=== PATIENT | female | born 1990 | race American Indian/Alaskan Native ===

== ENCOUNTER 2017-08-11 21:53 | Emergency (ER) | payer SELFPAY ==
[2017-08-11 23:14] VITALS: BP 97/63
--- NOTE | 2017-08-12 04:19 | Emergency Department Report ---
ED Female HPI - General Chief complaint: Urogenital-Female Stated complaint: VAG D/C WITH ODOR Time Seen by Provider: 08/12/17 03:14 Source: patient Mode of arrival: Ambulatory Limitations: No Limitations - History of Present Illness Initial comments: This is a 27-year-old -Irish female who presents with vaginal discharge started to weeks ago. Patient has a history of chronic bacteria vaginosis. Reports she is currently uninsured and has not been able to follow up with her primary care provider or [facility]. She decided to come in here to get some assistance because she could not take symptoms any longer. She has noticed a foul discharge or symptoms originally started. She has not tried anything [id number] for symptom relief. Denies frequency, urgency, vaginal bleeding, and risk of . MD Complaint: vaginal discharge -: week(s) (2 weeks) Severity: moderate Severity scale (0 -10): 5 Quality: aching Consistency: intermittent Improves with: none Worsens with: urination Are you Now?: No Associated Symptoms: vaginal discharge - Related Data Sexually active: No Previous Rx's Medication Instructions Recorded Last Taken Type Oxycodone HCl/Acetaminophen 1 each PO Q6HR PRN #20 tablet 11/29/13 Unknown Rx [Percocet 10-325 mg] traMADol [Ultram] 50 mg PO Q6HR PRN #14 tablet 09/26/14 Unknown Rx Ciprofloxacin HCl [Ciprofloxacin 500 mg PO Q12HR #14 tab 09/28/15 Unknown Rx TAB] HYDROcodone/APAP 5-325 [Loris 1 each PO Q6HR PRN #20 tablet 09/28/15 Unknown Rx 5/325] Ibuprofen [Motrin 600 MG tab] 600 mg PO Q8H PRN #30 tablet 09/28/15 Unknown Rx Promethazine [Phenergan TAB] 25 mg PO Q6HR PRN #20 tab 09/28/15 Unknown Rx traMADol [Ultram] 50 mg PO Q6HR PRN #10 tablet 12/05/15 Unknown Rx metroNIDAZOLE [Metronidazole] 500 mg PO BID 7 Days #14 tablet 08/12/17 Unknown Rx Allergies Allergy/AdvReac Type Severity Reaction Status Date / Time acetaminophen [From Tylenol] Allergy Angioedema Verified 12/05/15 02:00 ED Review of Systems ROS: Stated complaint: VAG D/C WITH ODOR Other details as noted in HPI Constitutional: denies: chills, fever Respiratory: denies: cough, shortness of breath, wheezing Cardiovascular: denies: chest pain, palpitations Gastrointestinal: denies: abdominal pain, nausea, diarrhea Genitourinary: discharge (clear discharge, foul odor). denies: urgency, dysuria Musculoskeletal: denies: back pain, joint swelling, arthralgia Neurological: denies: headache, weakness, paresthesias Psychiatric: denies: anxiety, depression ED Past Medical Hx - Past Medical History Hx Congestive Heart Failure: No Hx Diabetes: No Hx Asthma: No Hx COPD: No Hx HIV: No Additional medical history: Tetanus status up to date. pt relates hx of yeast infections and BV - Surgical History Past Surgical History?: No Additional Surgical History: LEEP surgery 2003 - Social History Smoking Status: Never Smoker Substance Use Type: None - Medications Home Medications: Home Medications Medication Instructions Recorded Confirmed Last Taken Type Oxycodone HCl/Acetaminophen 1 each PO Q6HR PRN #20 tablet 11/29/13 Unknown Rx [Percocet 10-325 mg] traMADol [Ultram] 50 mg PO Q6HR PRN #14 tablet 09/26/14 Unknown Rx Ciprofloxacin HCl [Ciprofloxacin 500 mg PO Q12HR #14 tab 09/28/15 Unknown Rx TAB] HYDROcodone/APAP 5-325 [Loris 1 each PO Q6HR PRN #20 tablet 09/28/15 Unknown Rx 5/325] Ibuprofen [Motrin 600 MG tab] 600 mg PO Q8H PRN #30 tablet 09/28/15 Unknown Rx Promethazine [Phenergan TAB] 25 mg PO Q6HR PRN #20 tab 09/28/15 Unknown Rx traMADol [Ultram] 50 mg PO Q6HR PRN #10 tablet 12/05/15 Unknown Rx metroNIDAZOLE [Metronidazole] 500 mg PO BID 7 Days #14 tablet 08/12/17 Unknown Rx ED Physical Exam - General Limitations: No Limitations General appearance: alert, in no apparent distress - Respiratory Respiratory exam: Present: normal lung sounds bilaterally. Absent: respiratory distress, wheezes, rales, rhonchi, stridor, accessory muscle use - Cardiovascular Cardiovascular Exam: Present: regular rate, normal rhythm, normal heart sounds. Absent: systolic murmur, diastolic murmur, rubs, gallop - GI/Abdominal GI/Abdominal exam: Present: soft, normal bowel sounds. Absent: distended, tenderness, guarding, rebound, rigid, organomegaly, mass - Neurological Exam Neurological exam: Present: alert, oriented X3 - Psychiatric Psychiatric exam: Present: normal affect, normal mood - Skin Skin exam: Present: warm, dry, intact, normal color. Absent: rash ED Course Vital Signs 08/11/17 23:11 Temperature 98.8 F Pulse Rate 79 Respiratory 18 Rate Blood Pressure 97/63 O2 Sat by Pulse 100 Oximetry ED Medical Decision Making - Medical Decision Making This is a 27 y.o. female presents with vaginal discharge for 2 weeks. Patient was examined by me. History of chronic vaginitis. Refused pelvic exam. Empirically treated with metronidazole 500 mg po bid x 7 days. Discussed prevention options. F/U with PCP or Health Department. Critical care attestation.: If time is entered above; I have spent that time in minutes in the direct care of this critically ill patient, excluding procedure time. ED Disposition Clinical Impression: Acute vaginitis Disposition: TO HOME OR SELFCARE Is pt being admited?: No Does the pt Need Aspirin: No Condition: Stable Instructions: Vaginitis (ED), Bacterial Vaginosis (ED) Additional Instructions: Avoid drinking alcohol for 24 hours. Continue safe sexual intercourse. Follow up with Primary Care Provider or health department in 3 days. Prescriptions: metroNIDAZOLE [Metronidazole] 500 mg PO BID 7 Days #14 tablet Referrals: [facility] [Outside] - 3-5 Days [facility] [Outside] - 3-5 Days [facility] [Outside] - 3-5 Days Forms: Work/School Release Form(ED) Time of Disposition: 04:21 Print Language: MALDIVIAN
== END 2017-08-12 04:25 | disposition home or self-care (01) ==
LOC: ED 21:53
DX: N76.0 Acute vaginitis (principal); Z88.6 Allergy status to analgesic agent
CPT/HCPCS: 99282

== ENCOUNTER 2017-09-01 14:12 | Emergency (ER) | payer SELFPAY ==
--- NOTE | 2017-09-01 18:43 | Emergency Department Report ---
ED Female HPI - General Chief complaint: Abdominal Pain Stated complaint: ABD PAIN Time Seen by Provider: 09/01/17 18:38 Source: patient Mode of arrival: Ambulatory Limitations: No Limitations - History of Present Illness Initial comments: 27-year-old female past medical history recurrent bacterial vaginosis presents with 3 days of vaginal discomfort and itching. Patient states this is similar to her previous episodes of bacterial vaginosis. Patient is awake alert and oriented 3. Denies nausea vomiting dysuria or hematuria or increased urinary frequency. Does endorse slight suprapubic discomfort. States she has been treated several times for bacterial vaginosis and yeast infections. Patient states she just finished a course of oral fluconazole and oral metronidazole within the last 1-2 weeks. MD Complaint: vaginal discharge, pelvic pain Onset/Timin -: days(s) Severity: mild Severity scale (0 -10): 4 Consistency: constant Worsens with: urination Associated Symptoms: vaginal discharge - Related Data Sexually active: Yes Previous Rx's Medication Instructions Recorded Last Taken Type Oxycodone HCl/Acetaminophen 1 each PO Q6HR PRN #20 tablet 11/29/13 Unknown Rx [Percocet 10-325 mg] traMADol [Ultram] 50 mg PO Q6HR PRN #14 tablet 09/26/14 Unknown Rx Ciprofloxacin HCl [Ciprofloxacin 500 mg PO Q12HR #14 tab 09/28/15 Unknown Rx TAB] HYDROcodone/APAP 5-325 [Galva 1 each PO Q6HR PRN #20 tablet 09/28/15 Unknown Rx 5/325] Ibuprofen [Motrin 600 MG tab] 600 mg PO Q8H PRN #30 tablet 09/28/15 Unknown Rx Promethazine [Phenergan TAB] 25 mg PO Q6HR PRN #20 tab 09/28/15 Unknown Rx traMADol [Ultram] 50 mg PO Q6HR PRN #10 tablet 12/05/15 Unknown Rx metroNIDAZOLE [Metronidazole] 500 mg PO BID 7 Days #14 tablet 08/12/17 Unknown Rx Sulfamethoxazole/Trimethoprim 1 each PO BID #6 tablet 09/01/17 Unknown Rx [Bactrim DS TAB] metroNIDAZOLE 0.75%(NF) [Metrogel 1 applicatio TP BID #1 tube 09/01/17 Unknown Rx 0.75% TOPICAL] Allergies Allergy/AdvReac Type Severity Reaction Status Date / Time acetaminophen [From Tylenol] Allergy Angioedema Verified 12/05/15 02:00 ED Review of Systems ROS: Stated complaint: ABD PAIN Other details as noted in HPI Constitutional: denies: chills, fever Eyes: denies: eye pain, eye discharge, vision change ENT: denies: ear pain, throat pain Respiratory: denies: cough, shortness of breath, wheezing Cardiovascular: denies: chest pain, palpitations Endocrine: no symptoms reported Gastrointestinal: denies: abdominal pain, nausea, diarrhea Genitourinary: denies: urgency, dysuria, discharge Musculoskeletal: denies: back pain, joint swelling, arthralgia Skin: denies: rash, lesions Neurological: denies: headache, weakness, paresthesias Psychiatric: denies: anxiety, depression Hematological/Lymphatic: denies: easy bleeding, easy bruising ED Past Medical Hx - Past Medical History Hx Congestive Heart Failure: No Hx Diabetes: No Hx Asthma: No Hx COPD: No Hx HIV: No Additional medical history: Tetanus status up to date. pt relates hx of yeast infections and BV - Surgical History Past Surgical History?: No Additional Surgical History: LEEP surgery 2003 - Social History Smoking Status: Never Smoker Substance Use Type: None - Medications Home Medications: Home Medications Medication Instructions Recorded Confirmed Last Taken Type Oxycodone HCl/Acetaminophen 1 each PO Q6HR PRN #20 tablet 11/29/13 Unknown Rx [Percocet 10-325 mg] traMADol [Ultram] 50 mg PO Q6HR PRN #14 tablet 09/26/14 Unknown Rx Ciprofloxacin HCl [Ciprofloxacin 500 mg PO Q12HR #14 tab 09/28/15 Unknown Rx TAB] HYDROcodone/APAP 5-325 [Galva 1 each PO Q6HR PRN #20 tablet 09/28/15 Unknown Rx 5/325] Ibuprofen [Motrin 600 MG tab] 600 mg PO Q8H PRN #30 tablet 09/28/15 Unknown Rx Promethazine [Phenergan TAB] 25 mg PO Q6HR PRN #20 tab 09/28/15 Unknown Rx traMADol [Ultram] 50 mg PO Q6HR PRN #10 tablet 12/05/15 Unknown Rx metroNIDAZOLE [Metronidazole] 500 mg PO BID 7 Days #14 tablet 08/12/17 Unknown Rx Sulfamethoxazole/Trimethoprim 1 each PO BID #6 tablet 09/01/17 Unknown Rx [Bactrim DS TAB] metroNIDAZOLE 0.75%(NF) [Metrogel 1 applicatio TP BID #1 tube 09/01/17 Unknown Rx 0.75% TOPICAL] ED Physical Exam - General Limitations: No Limitations General appearance: alert, in no apparent distress - Head Head exam: Present: atraumatic, normocephalic - Eye Eye exam: Present: normal appearance, PERRL, EOMI - ENT ENT exam: Present: mucous membranes moist - Neck Neck exam: Present: normal inspection - Respiratory Respiratory exam: Present: normal lung sounds bilaterally. Absent: respiratory distress - Cardiovascular Cardiovascular Exam: Present: regular rate, normal rhythm. Absent: systolic murmur, diastolic murmur, rubs, gallop - GI/Abdominal GI/Abdominal exam: Present: soft (abdomen soft nontender nondistended otherwise. Slight minimally reproducible suprapubic discomfort), normal bowel sounds - External exam: Present: normal external exam Speculum exam: Present: vaginal discharge (thick white vaginal discharge) Bi-manual exam: Present: normal bi-manual exam (no adnexal or cervical motion tenderness on bimanual exam) - Extremities Exam Extremities exam: Present: normal inspection - Back Exam Back exam: Present: normal inspection - Neurological Exam Neurological exam: Present: alert, oriented X3, CN II-XII intact, normal gait - Psychiatric Psychiatric exam: Present: normal affect, normal mood - Skin Skin exam: Present: warm, dry, intact, normal color. Absent: rash ED Course Vital Signs 09/01/17 17:49 Temperature 97 F L Pulse Rate 93 H Respiratory 18 Rate Blood Pressure 124/72 O2 Sat by Pulse 100 Oximetry ED Medical Decision Making - Medical Decision Making A/P: Vaginal discharge 1-urine culture, Chlamydia culture, wet prep sent 2-patient has had recurrent bouts of bacterial vaginosis for more than one year. I referred to [facility] on management of recurrent bacterial vaginosis. As patient recently completed a course of oral metronidazole will prescribe her a course of vaginal metronidazole gel and I advised her that it is necessary for her to follow up with [facility] to track her response to treatment. [email or web address]# [id number] 3-patient does have large leukocyte esterase and urine. Urine culture sent. We 'll treat empirically with short course of Bactrim Critical care attestation.: If time is entered above; I have spent that time in minutes in the direct care of this critically ill patient, excluding procedure time. ED Disposition Clinical Impression: Bacterial vaginosis Urinary tract infection Qualifiers: Urinary tract infection type: acute cystitis Hematuria presence: without hematuria Qualified Code(s): N30.00 - Acute cystitis without hematuria Disposition: TO HOME OR SELFCARE Is pt being admited?: No Does the pt Need Aspirin: No Condition: Stable Instructions: Abdominal Pain (ED), Bacterial Vaginosis (ED), Urinary Tract Infection in Women (ED) Prescriptions: metroNIDAZOLE 0.75%(NF) [Metrogel 0.75% TOPICAL] 1 applicatio TP BID #1 tube Sulfamethoxazole/Trimethoprim [Bactrim DS TAB] 1 each PO BID #6 tablet Referrals: [facility] [Provider Group] - 3-5 Days [facility] [Provider Group] - 3-5 Days [facility] [Provider Group] - 3-5 Days Forms: Work/School Release Form(ED) Time of Disposition: 19:55
[2017-09-01 18:49] LABS: Mucus,Urine 2+ /HPF
[2017-09-01 18:52] LABS: HCG Qualitative,Urine Negative (Negative)
[2017-09-01 19:03] LABS: Amorphous Crystals,Urine Few; Bilirubin,Urine NEG (Negative); Blood,Urine NEG (Negative); Color,Urine Yellow (Yellow); Protein,Urine <15 mg/dL mg/dL (Negative)
[2017-09-01 20:05] VITALS: BP 104/76
== END 2017-09-01 20:07 | disposition home or self-care (01) ==
LOC: ED 14:12
DX: N76.0 Acute vaginitis (principal); N39.0 Urinary tract infection, site not specified; Z88.6 Allergy status to analgesic agent
CPT/HCPCS: 81001; 81025; 87210; 87591; 99284

== ENCOUNTER 2017-12-15 09:44 | Emergency (ER) | payer SELFPAY ==
[2017-12-15 09:54] VITALS: BP 99/62
--- NOTE | 2017-12-15 11:05 | Emergency Department Report ---
Chief Complaint: Urogenital-Female Stated Complaint: STD CHECK Time Seen by Provider: 12/15/17 10:57 - HPI History of Present Illness: Patient is a 27-year-old female who is complaining of some vaginal irritation. Her partner was diagnosed with Trichomonas. Patient denies any dysuria or vaginal discharge this time. Patient states she went to the health department and tried to $60 to be seen so she came to the emergency department - ROS Review of Systems: All other systems are reviewed and are negative - Exam Vital Signs: Vital Signs 12/15/17 09:52 Temperature 98.1 F Pulse Rate 87 Respiratory 20 Rate Blood Pressure 99/62 O2 Sat by Pulse 100 Oximetry Physical Exam: Abdomen soft nontender. Patient alert and oriented 3. MSE screening note: Focused history and physical exam performed. Due to findings the following was ordered: ED Medical Decision Making - Medical Decision Making Patient has abdominal medical emergency at this time. He was advised to patient go to the health Department since this is much cheaper option. ED Disposition for MSE Clinical Impression: STD (female) Disposition: MED SCREENING EXAM-LEFT Is pt being admited?: No Does the pt Need Aspirin: No Condition: Stable Referrals: [facility], [Primary Care Provider] - 3-5 Days Time of Disposition: 11:19
== END 2017-12-15 11:07 | disposition left against medical advice (07) ==
LOC: ED 09:44
DX: A64 Unspecified sexually transmitted disease (principal)
CPT/HCPCS: 99281

== ENCOUNTER 2019-03-03 12:06 | Outpatient (CLI) | payer MEDICAID ==
[2019-03-03 13:08] LABS: Bilirubin,Urine NEG (Negative); Blood,Urine NEG (Negative); Color,Urine Yellow (Yellow); Mucus,Urine FEW /HPF; Protein,Urine <15 mg/dL mg/dL (Negative); Urobilinogen,Urine < 2.0 mg/dL (<2.0)
== END 2019-03-03 14:10 | disposition home or self-care (01) ==
LOC: TRG 12:06
PROVIDERS: ATTEND Obstetrics & Gynecology
DX: O47.03 False labor before 37 completed weeks of gestation, third trimester (principal); Z3A.30 30 weeks gestation of pregnancy
CPT/HCPCS: 59025; 81001; 87086

== ENCOUNTER 2019-04-29 19:55 | Outpatient (CLI) | payer MEDICAID ==
[2019-04-29 21:06] VITALS: BP 99/54
== END 2019-04-29 21:41 | disposition home or self-care (01) ==
LOC: TRG 19:55
PROVIDERS: ATTEND Obstetrics & Gynecology
DX: O47.1 False labor at or after 37 completed weeks of gestation (principal); Z3A.38 38 weeks gestation of pregnancy
CPT/HCPCS: 59025

== ENCOUNTER 2019-05-02 19:18 | Outpatient (CLI) | payer MEDICAID ==
[2019-05-02 19:44] VITALS: BP 90/59
== END 2019-05-02 22:06 | disposition home or self-care (01) ==
LOC: TRG 19:18
PROVIDERS: ATTEND Obstetrics & Gynecology
DX: O47.1 False labor at or after 37 completed weeks of gestation (principal); Z3A.38 38 weeks gestation of pregnancy
CPT/HCPCS: 59025

== ENCOUNTER 2019-05-05 12:25 | Inpatient (IN) | payer MEDICAID ==
[2019-05-05] MEDS ORDERED: MINERAL OIL 30 ML ORAL LIQD PO PRN (15:15)
[2019-05-05] MEDS ORDERED: TERBUTALINE 1 MG/1 ML INJ IVP PRN (15:15)
[2019-05-05] MEDS ORDERED: TERBUTALINE 1 MG/1 ML INJ SUB-Q PRN (15:15)
[2019-05-05] MEDS ORDERED: ePHEDrine SULFATE 50 MG/1 ML INJ IV PRN (15:15)
[2019-05-05] MEDS ORDERED: BUTORPHANOL 2 MG/1 ML INJ IV PRN (15:15)
[2019-05-05] MEDS ORDERED: LIDOCAINE (2%) 20 MG/1 ML VIAL 20 ML MDV INFILTRATI ONE (15:15)
[2019-05-05] MEDS ORDERED: ONDANSETRON 4 MG/2 ML INJ IV PRN (15:15)
[2019-05-05 15:45] LABS: Hematocrit 33.9 % (30.3-42.9); Hemoglobin 11.4 gm/dl (10.1-14.3); Mean Corpuscular HGB Conc 34 % (30-34); Mean Corpuscular Volume 87 fl (79-97); Red Blood Count 3.88 M/mm3 (3.65-5.03); Red Cell Distribution Width 14.3 % (13.2-15.2)
[2019-05-05 15:57] LABS: Platelet Count 86 K/mm3 (140-440)
[2019-05-05] MEDS ORDERED: AMPICILLIN/NS 2 GM/100 ML 2 GM/100 ML BAG IV ONE ×2 (15:57→19:30)
[2019-05-05] MEDS ORDERED: LACTATED RINGERS 1,000 ML IV SCH (16:00)
[2019-05-05] MEDS: fentaNYL 100 MCG/2 ML INJ IV PRN ×2 (16:13→17:56)
[2019-05-05] MEDS ORDERED: OXYTOCIN DRIP 30 UNITS/500 ML BAG IV SCH (18:00)
--- NOTE | 2019-05-05 18:23 | History and Physical Report ---
History of Present Illness Date of examination: 05/05/19 Date of admission: 05/05/19 15:47 Chief complaint: Labor History of present illness: 29 year old was admitted earlier in day for labor. Patient contractions had started earlier this afternoon. Denies VB. Reports active movement. Received care at [facility] and states she was seen in the o ffice today and was sent to the hospital. Was able to look up patient's records on the computer. EDC 05/13/2019. significant for the following: size greater than dates, gestational thrombocytopenia. labs are as follows: O+, antibody screen negative, HIV negative, hepatitis B surface antigen negative, RPR nonreactive, rubella immune, hemoglobin electrophoresis negative, quad screen negative, 1 hour sugar test 107, gonorrhea negative, chlamydia negative, GBS positive. 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 denies: chlamydia, gonorrhea, hepatitis B, HIV, syphilis Family/Genetic History: none Social history: no significant social history, full code. denies: smoking, alcohol abuse, IV drug use - Obstetrical History Expected Date of Delivery: 05/13/19 Actual Gestation: 38 Week(s) 6 Day(s) : 8 Para: 5 Hx # Term Pregnancies: 4 Number of Pregnancies: 1 Spontaneous Abortions: 1 Induced : 1 Number of Living Children: 4 Medications and Allergies Allergies Allergy/AdvReac Type Severity Reaction Status Date / Time No Known Allergies Allergy Verified 04/18/19 11:56 Home Medications Medication Instructions Recorded Confirmed Last Taken Type Pnv Plus Multivit Tab 1 tab PO DAILY 05/02/19 05/05/19 05/05/19 09:30 History 1 Active Meds: Active Medications Butorphanol Tartrate (Stadol) 2 mg IV Q2H PRN PRN Reason: Pain , Severe (7-10) Ephedrine Sulfate (Ephedrine Sulfate) 10 mg IV Q2M PRN PRN Reason: Hypotension Fentanyl (Sublimaze) 100 mcg IV Q2H PRN PRN Reason: Labor Pain Last Admin: 05/05/19 17:56 Dose: 100 mcg Documented by: Oxytocin/Sodium Chloride (Pitocin/Ns 20 Unit/1000ml Drip) 20 units in 1,000 mls @ 125 mls/hr IV DIRECT ANNE-MARIE Oxytocin/Sodium Chloride (Pitocin/Ns 30 Unit/500ml) 30 units in 500 mls @ 0 mls/hr IV TITR ANNE-MARIE; Protocol Lactated Ringer's (Lactated Ringers) 1,000 mls @ 125 mls/hr IV DIRECT ANNE-MARIE Last Admin: 05/05/19 15:55 Dose: 125 mls/hr Documented by: Ampicillin Sodium (Ampicillin/Ns 2 Gm/100 Ml) 2 gm in 100 mls @ 100 mls/hr IV ONCE ONE; Protocol Stop: 05/05/19 20:29 Ampicillin Sodium (Ampicillin/Ns 1 Gm/50 Ml) 1 gm in 50 mls @ 100 mls/hr IV Q4HR ANNE-MARIE; Protocol Mineral Oil (Mineral Oil) 30 ml PO QHS PRN PRN Reason: Constipation Ondansetron HCl (Zofran) 4 mg IV Q8H PRN PRN Reason: Nausea And Vomiting Terbutaline Sulfate (Brethine) 0.25 mg SUB-Q ONCE PRN PRN Reason: Hyperstimulation/Hypertonicity Terbutaline Sulfate (Brethine) 0.25 mg IVP ONCE PRN PRN Reason: Hyperstimulation/Hypertonicity Review of Systems All systems: negative (contractions) - Vital Signs Vital signs: Vital Signs Pulse BP 79 95/54 05/05/19 13:16 05/05/19 13:16 Temp Pulse Resp BP Pulse Ox 98.9 F 86 16 105/63 05/05/19 16:00 05/05/19 17:30 05/05/19 15:27 05/05/19 17:30 - Physical Exam Abdomen: Positive: normal appearance, soft. Negative: distention, tenderness, guarding, rigidity Genitourinary (Female): Positive: normal external genitalia, normal perenium. Negative: perineal/vulvar lesions (no lesions noted on careful exam with bright light) Vagina: Positive: normal moisture Uterus: Positive: enlarged (S=D) Anus/Rectum: Positive: normal perianal skin Extremities: Positive: normal. Negative: tenderness, edema - Obstetrical FHR: category 1 Cervical Dilatation: 8 Cervical Effacement Percentage: 90 station: 0 Uterine Contraction Pattern: Irregular Uterine Contraction Intensity: Mild Results Result Diagrams: 05/05/19 15:15 Abnormal lab results 05/05/19 Range/Units 15:15 Plt Count 86 L (140-440) K/mm3 All other labs normal. Assessment and Plan A: at 38 weeks, 6 days gestation. Active advanced labor. GBS positive. P: Admit. GBS prophylaxis. Anticipate .
[2019-05-05] MEDS: OXYTOCIN 20 UNIT/1000ML DRIP 20 UNITS/1,000 ML BAG IV SCH ×2 (18:58→20:16)
[2019-05-05] MEDS ORDERED: AMPICILLIN/NS 1 GM/50 ML 1 GM/50 ML BAG IV SCH (19:30)
--- NOTE | 2019-05-05 19:35 | Procedure Note ---
OB Delivery Note - Delivery Date of Delivery: 05/05/19 Surgeon: FIONA HUANG Estimated blood loss: 200cc - Vaginal Delivery presentation: vertex Delivery position: OA Delivery induction: none Delivery monitor: external FHT, external uterine Route of delivery: Delivery placenta: spontaneous Delivery cord: 3 umbilical vessels Episiotomy: none Delivery laceration: none Anesthesia: none Delivery comments: Spontaneous vaginal delivery at 18:50 of liveborn female weighing 3372 grams over intact perineum with apgars of 7/8. Spontaneous cry and respirations. 3 vessel cord double clamped and cut. Baby taken to radiant warmer for further suctioning. Spontaneous delivery of intact placenta and membranes. EBL 200 cc. No lacerations noted. Pitocin to IV fluids after delivery of placenta. Fundus firm and midline. Vaginal sweep negative, sponge count correct.
[2019-05-05] MEDS ORDERED: MAGNESIUM HYDROXIDE (MOM) ORAL LIQD UDC PO PRN (19:45)
[2019-05-05] MEDS ORDERED: WITCH HAZEL/ GLYCERIN PAD TP PRN (19:45)
[2019-05-05] MEDS ORDERED: LANOLIN/ZINC/DIMETHICONE (LANSINOH) 7 GM TP PRN (19:45)
[2019-05-05] MEDS: HYDROcodone/ACETAMINOPHEN 5-325 MG TAB PO PRN (20:49)
[2019-05-06] MEDS: HYDROcodone/ACETAMINOPHEN 5-325 MG TAB PO PRN (02:26)
[2019-05-06] MEDS: IBUPROFEN 600 MG TAB PO SCH ×2 (06:32→12:49)
[2019-05-06 07:12] LABS: Hematocrit 29.5 % (30.3-42.9); Hemoglobin 10.1 gm/dl (10.1-14.3)
--- NOTE | 2019-05-06 10:17 | Progress Note ---
Assessment and Plan A: day 1 S/P . Anemia. P: Continue iron supplementation. Anticipate discharge home tomorrow if patient continues to do well. Subjective - Subjective Date of service: 05/06/19 Principal diagnosis: day 1 S/P Interval history: day 1 S/P . Doing well. No complaints. Reports small to moderate amount of lochia. Patient reports: appetite normal, voiding normally, pain well controlled, flatus, ambulating normally, no dizzy ambulation, no nauseated : doing well Objective - Vital Signs Latest vital signs: Vital Signs Temp Pulse Resp BP BP Pulse Ox 05/06/19 08:57 98.9 F 70 18 94/54 98 05/06/19 05:52 98.3 F 69 18 100/59 99 05/06/19 02:26 20 05/05/19 22:35 98.4 F 73 20 102/47 05/05/19 20:13 98.2 F 75 136/71 05/05/19 20:03 75 136/71 05/05/19 17:30 86 105/63 05/05/19 16:00 98.9 F 05/05/19 15:27 98.2 F 79 16 95/54 05/05/19 14:58 83 84/54 05/05/19 13:16 79 95/54 Intake and Output 05/05/19 05/06/19 05/06/19 23:59 07:59 15:59 Intake Total 162.5 120 Output Total 600 Balance 162.5 -480 Intake: IV 162.5 PITOCin/NS 20 UNIT/1000ML 162.5 DRIP 20 units In 1,000 ml @ 125 mls/hr IV DIRECT ANNE-MARIE Rx#:[id number] Intake, Free Water 120 Output: Urine 600 Void 600 Other: Total, Output Amount 200 Estimated Blood Loss 200 - Exam Abdomen: Present: normal appearance, soft. Absent: distention, tenderness, guarding, rigidity Uterus: Present: normal, firm, fundal height below umbilicus. Absent: bogginess, tenderness Extremities: Present: normal. Absent: tenderness, edema - Labs Labs: Abnormal lab results 05/05/19 05/06/19 Range/Units 15:15 06:57 Hct 29.5 L (30.3-42.9) % Plt Count 86 L (140-440) K/mm3
[2019-05-06] MEDS: FERROUS SULFATE 325 MG TAB PO SCH (10:22)
[2019-05-06] MEDS: DOCUSATE SODIUM 100 MG CAP PO SCH (10:23)
[2019-05-06] MEDS: oxyCODONE /ACETAMINOPHEN 5-325MG TAB PO PRN ×2 (10:24→17:58)
[2019-05-07] MEDS: DOCUSATE SODIUM 100 MG CAP PO SCH ×4 (00:41→22:02)
[2019-05-07] MEDS: FERROUS SULFATE 325 MG TAB PO SCH ×4 (00:41→22:02)
[2019-05-07] MEDS: oxyCODONE /ACETAMINOPHEN 5-325MG TAB PO PRN ×3 (02:31→22:01)
--- NOTE | 2019-05-07 12:10 | Progress Note ---
Assessment and Plan A: day 2 S/P . Anemia secondary to and blood loss. Gestational thrombocytopenia. P: Discharge patient home today. Discussed with patient discharge instructions and warning signs in detail. Advised patient to avoid intercourse, driving, lifting and housework. Advised patient to continue to take her vitamins and iron supplements at home. Advised patient to follow up at [facility] on 05/11/2019 for repeat platelet count. Patient voiced understanding of all instructions. Subjective - Subjective Date of service: 05/07/19 Principal diagnosis: day 2 S/P Interval history: day 2 S/P . Doing well. Patient desires discharge home today. Voiding without difficulty, ambulating well, tolerating a regular diet, passing gas. Patient denies headache, cough, shortness of breath, chest pain, dizziness, abdominal pain, leg pain, heavy bleeding, or nausea/vomiting. Patient reports: appetite normal, voiding normally, pain well controlled, flatus, ambulating normally, no dizzy ambulation, no nauseated : doing well Objective - Vital Signs Latest vital signs: Vital Signs Temp Pulse Resp BP BP Pulse Ox 05/07/19 08:25 98.2 F 75 20 102/63 05/07/19 03:31 18 05/07/19 02:31 18 05/07/19 00:20 98.2 F 66 18 94/52 100 05/06/19 18:58 18 05/06/19 16:51 97.9 F 72 18 98 Intake and Output 05/06/19 05/07/19 05/07/19 23:59 07:59 15:59 Intake Total 360 120 320 Balance 360 120 320 Intake: Oral 240 120 320 Intake, Free Water 120 Other: Total, Intake Amount 240 120 320 # Voids Void 1 1 - Exam Cardiovascular: Present: Regular rate, Normal S1, Normal S2, No murmurs Lungs: Present: Clear to auscultation Abdomen: Present: normal appearance, soft, normal bowel sounds. Absent: distention, tenderness, guarding, rigidity Uterus: Present: normal, firm, fundal height below umbilicus. Absent: bogginess, tenderness Extremities: Present: normal. Absent: tenderness, edema - Labs Labs: Abnormal lab results 05/07/19 Range/Units 10:15 Plt Count 81 L (140-440) K/mm3
[2019-05-08] MEDS: oxyCODONE /ACETAMINOPHEN 5-325MG TAB PO PRN (05:12)
[2019-05-08 09:30] LABS: Hematocrit 32.4 % (30.3-42.9); Hemoglobin 11.4 gm/dl (10.1-14.3); Mean Corpuscular HGB Conc 35 % (30-34); Mean Corpuscular Volume 88 fl (79-97); Red Blood Count 3.69 M/mm3 (3.65-5.03); Red Cell Distribution Width 14.4 % (13.2-15.2)
[2019-05-08 09:32] LABS: Platelet Count 89 K/mm3 (140-440)
[2019-05-08] MEDS: DOCUSATE SODIUM 100 MG CAP PO SCH (09:40)
[2019-05-08] MEDS: FERROUS SULFATE 325 MG TAB PO SCH (09:40)
--- NOTE | 2019-05-08 09:53 | Progress Note ---
Assessment and Plan - Patient Problems (1) Status post normal vaginal delivery Current Visit: Yes Status: Acute Plan to address problem: PPD 3 - stable Discharge to home today Follow-up at [facility] as needed or in 6 weeks for exam (2) Gestational thrombocytopenia without hemorrhage Current Visit: Yes Status: Acute Qualifiers: Trimester: third trimester Qualified Code(s): O99.113 - Other diseases of the blood and blood-forming organs and certain disorders involving the immune mechanism complicating , third trimester; D69.6 - Thrombocytopenia, unspecified Plan to address problem: Follow up with Hematology (3) Encounter for other general counseling and advice on contraception Current Visit: Yes Status: Acute Plan to address problem: Contraceptive counseling provided. Patient prefers depo provera Risks of hormonal contraception discussed. All questions answered. Patient voiced understanding. 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 Patient reports: appetite normal, voiding normally, pain well controlled, ambulating normally, no dizzy ambulation [place]: doing well, bottle feeding Objective - Vital Signs Latest vital signs: Vital Signs Temp Pulse Resp BP BP Pulse Ox 05/08/19 07:36 98.2 F 68 20 102/63 97 05/08/19 00:28 98.2 F 69 20 100/61 100 05/07/19 16:22 98 F 68 20 101/60 Intake and Output 05/07/19 05/08/19 05/08/19 23:59 07:59 15:59 Intake Total 120 Balance 120 Intake: Oral 120 Other: Total, Intake Amount 120 # Voids Void 1 1 - Exam Cardiovascular: Present: Regular rate Lungs: Present: Clear to auscultation Abdomen: Present: normal appearance, soft Vulva: both: normal Uterus: Present: normal, firm, fundal height below umbilicus Extremities: Present: normal Comments: scant lochia - Labs Labs: Abnormal lab results 05/07/19 05/08/19 Range/Units 10:15 08:48 MCHC 35 H (30-34) % Plt Count 81 L 89 L (140-440) K/mm3
--- NOTE | 2019-05-08 09:56 | Discharge Summary ---
Providers - Providers Date of Admission: 05/05/19 15:47 Date of discharge: 05/08/19 Attending physician: CASIE CRUM MD Primary care physician: CASIE CRUM MD Hospitalization Reason for admission: active labor, IUP at term Delivery: Episiotomy: none Laceration: none Other procedures: none complications: other (thrombocytopenia) Discharge diagnosis: IUP at term delivered [place] baby: female Hospital course: Complicated by thrombocytopenia Condition at discharge: Stable Disposition: ND-01 TO HOME OR SELFCARE - Discharge Diagnoses (1) Status post normal vaginal delivery Status: Acute (2) Gestational thrombocytopenia without hemorrhage Status: Acute Qualifiers: Trimester: third trimester Qualified Code(s): O99.113 - Other diseases of the blood and blood-forming organs and certain disorders involving the immune mechanism complicating , third trimester; D69.6 - Thrombocytopenia, unspecified Comment: Asymptomatic Follow-up with Hematology (3) Encounter for other general counseling and advice on contraception Status: Acute (4) Encounter for initial prescription of injectable contraceptive Status: Acute Comment: Administered prior to discharge Plan - Provider Discharge Summary Activity: routine, no sex for 6 weeks, no heavy lifting 4 weeks, no strenuous exercise Diet: routine Instructions: routine Additional instructions: [] Smoking cessation referral if applicable(refer to patient education folder for contact #) [] Refer to [facility] Call your doctor immediately for: * Fever > 100.5 * Heavy vaginal bleeding ( >1 pad per hour) * Severe persistent headache * Shortness of breath * Reddened, hot, painful area to leg or breast * Drainage or odor from incision. * Keep incision clean and dry at all times and follow doctor's instructions regarding bathing/showering - Follow up plan Follow up: CASIE CRUM MD [Primary Care Provider] - 6 Weeks (Follow-up at [facility] as needed or in 6 weeks for exam)
[2019-05-08] MEDS ORDERED: medroxyPROGESTERone ACETATE 150 MG/ML SYRINGE IM SCH (10:00)
[2019-05-08 11:05] VITALS: BP 110/59
== END 2019-05-08 11:40 | disposition home or self-care (01) | DRG 775 ==
LOC: TRG 12:25 → LD 15:47 → OB 22:40
PROVIDERS: ADMIT Obstetrics & Gynecology; ATTEND Obstetrics & Gynecology
PROC: 10E0XZZ Delivery of Products of Conception, External Approach (ICD-10-PCS; principal; 2019-05-05)
DX: O99.824 Streptococcus B carrier state complicating childbirth (principal); O99.12 Other diseases of the blood and blood-forming organs and certain disorders involving the immune mechanism complicating childbirth; D69.6 Thrombocytopenia, unspecified; O99.02 Anemia complicating childbirth; Z3A.38 38 weeks gestation of pregnancy; Z37.0 Single live birth; Z30.8 Encounter for other contraceptive management; Z30.42 Encounter for surveillance of injectable contraceptive
CPT/HCPCS: 36415; 85014; 85018; 85027; 85049; 86850; 86900; 86901; G0378; J0290; J1050; J2590; J3010; J7120

== ENCOUNTER 2020-07-02 12:31 | Emergency (ER) | payer MEDICAID | END 2020-07-02 13:31 | disposition left against medical advice (07) | LOC: ED 12:31 | DX: N93.9 Abnormal uterine and vaginal bleeding, unspecified (principal); Z53.21 Procedure and treatment not carried out due to patient leaving prior to being seen by health care provider ==

== ENCOUNTER 2020-07-02 22:57 | Emergency (ER) | payer MEDICAID | END 2020-07-03 07:32 | LOC: ED 22:57 | DX: Z53.21 Procedure and treatment not carried out due to patient leaving prior to being seen by health care provider (principal) ==

== ENCOUNTER 2020-12-25 21:37 | Outpatient (CLI) | payer MEDICAID ==
[2020-12-25 21:45] VITALS: BP 105/61
== END 2020-12-26 00:02 | disposition home or self-care (01) ==
LOC: TRG 21:37 → APU 21:38 → TRG 12-26 00:02
PROVIDERS: ATTEND Obstetrics & Gynecology
DX: Z34.93 Encounter for supervision of normal pregnancy, unspecified, third trimester (principal); Z3A.38 38 weeks gestation of pregnancy
CPT/HCPCS: 59025

== ENCOUNTER 2021-01-08 08:10 | Inpatient (IN) | payer MEDICAID ==
[2021-01-08] MEDS ORDERED: OXYTOCIN DRIP 30 UNITS/500 ML BAG IV SCH ×2 (10:00)
[2021-01-08] MEDS ORDERED: LACTATED RINGERS 1,000 ML IV SCH (10:00)
--- NOTE | 2021-01-08 10:11 | History and Physical Report ---
History of Present Illness Date of examination: 01/08/21 Date of admission: 01/08/2021 Chief complaint: Presents due to decreased movement and CTX History of present illness: Early entry to care, course complicated by UTI X 2, Vitamin D Deficiency, Poor maternal weight gain, and Thrombocytopenia (co-jayro with Hematology and received IV iron infusions) also co-jayro with [facility]. Hx of HSV II (taking Valtrex suppression). 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 History: abnormal PAP smear, herpes Family/Genetic History: hypertension (mother) Social history: no significant social history, - Obstetrical History Expected Date of Delivery: 01/04/21 Actual Gestation: 40 Week(s) 4 Day(s) : 9 Para: 5 Hx # Term Pregnancies: 5 Spontaneous Abortions: 2 Induced : 1 Number of Living Children: 5 #1 Gender: Male year: 2,[birth year] Birthweight: 2.665 kg Method of Delivery: Vaginal Gestational age at delivery: 38 #2 Gender: Female year: 2,011 Birthweight: 3.26 kg Method of Delivery: Vaginal Gestational age at delivery: 38 #3 Infant Gender: Female year: 2,012 Birthweight: 2.722 kg Method of Delivery: Vaginal Gestational age at delivery: 39 #4 Gender: Female year: 2,014 Birthweight: 2.722 kg Method of Delivery: Vaginal #5 Gender: Female year: 2,020 Birthweight: 3.345 kg Method of Delivery: Vaginal Gestational age at delivery: 39 Medications and Allergies Allergies Allergy/AdvReac Type Severity Reaction Status Date / Time No Known Allergies Allergy Verified 01/08/21 08:58 Home Medications Medication Instructions Recorded Confirmed Last Taken Type Pnv Plus Multivit Tab 1 tab PO DAILY 05/02/19 05/05/19 05/05/19 09:30 History 1 Active Meds: Active Medications Acetaminophen (Acetaminophen 325 Mg Tab) 650 mg PO Q4H PRN PRN Reason: Pain, Mild (1-3) Butorphanol Tartrate (Butorphanol 2 Mg/1 Ml Inj) 2 mg IV Q2H PRN PRN Reason: Pain , Severe (7-10) Carboprost Tromethamine (Carboprost Tromethamine 250 Mcg/1 Ml Inj) 250 mcg IM ONCE PRN PRN Reason: Uterine Bleeding Ephedrine Sulfate (Ephedrine Sulfate 50 Mg/1 Ml Inj) 10 mg IV Q2M PRN PRN Reason: Hypotension Oxytocin/Sodium Chloride (Pitocin/Ns 30 Unit/500ml) 30 units in 500 mls @ 4 mls/hr IV TITR ANNE-MARIE; Protocol Lactated Ringer's (Lactated Ringers) 1,000 mls @ 125 mls/hr IV DIRECT ANNE-MARIE Oxytocin/Sodium Chloride (Pitocin/Ns 30 Unit/500ml) 30 units in 500 mls @ 40 mls/hr IV TITR ANNE-MARIE; Protocol Lidocaine (Lidocaine (2%) 20 Mg/1 Ml Vial 20 Ml Mdv) 20 ml INFILTRATI ONCE ONE Stop: 01/08/21 09:51 Loperamide HCl (Loperamide 2 Mg Cap) 2 mg PO ONCE PRN PRN Reason: give with Hemabate Methylergonovine Maleate (Methylergonovine Maleate 0.2 Mg/Ml Vial) 0.2 mg IM ONCE PRN PRN Reason: Uterine Bleeding Mineral Oil (Mineral Oil 30 Ml Oral Liqd) 30 ml PO QHS PRN PRN Reason: Constipation Misoprostol (Misoprostol 200 Mcg Tab) 800 mcg OH ONCE PRN PRN Reason: Uterine Bleeding Naloxone HCl (Naloxone 0.4 Mg/1 Ml Inj) 0.1 mg IV Q2MIN PRN PRN Reason: Res Rate </= 8 or 02 SAT < 92% Ondansetron HCl (Ondansetron 4 Mg/2 Ml Inj) 4 mg IV Q8H PRN PRN Reason: Nausea And Vomiting Oxytocin (Oxytocin 10 Unit/1 Ml Inj) 10 unit IM ONCE PRN PRN Reason: Uterine Bleeding Terbutaline Sulfate (Terbutaline 1 Mg/1 Ml Inj) 0.25 mg SUB-Q ONCE PRN PRN Reason: Hyperstimulation/Hypertonicity Review of Systems All systems: negative - Vital Signs Vital signs: Vital Signs Pulse Pulse Ox 95 H 100 01/08/21 08:55 01/08/21 08:55 Temp Pulse Resp BP Pulse Ox 90 111/71 96 01/08/21 10:00 01/08/21 08:56 01/08/21 10:00 - Physical Exam Breasts: Positive: normal Cardiovascular: Regular rate Lungs: Positive: Clear to auscultation, Normal air movement Abdomen: Positive: normal appearance, soft, normal bowel sounds Genitourinary (Female): Positive: normal external genitalia, normal perenium Vagina: Positive: normal moisture Uterus: Positive: enlarged Anus/Rectum: Positive: normal perianal skin Extremities: Positive: normal - Obstetrical FHR: category 1 Uterine Contraction Monitor Mode: External Cervical Dilatation: 4 (vtx; Intact) Cervical Effacement Percentage: 70 station: -2 Uterine Contraction Pattern: Regular Uterine Tone Measurement Phase: Resting Results All other labs normal. Assessment and Plan A: IUP @ 40 4/7 Weeks Category I Tracing Early Labor Thrombocytopenia GBS Negative P: Admit to L&D per Routine Orders Pitocin Augmentation
[2021-01-08] MEDS ORDERED: BUTORPHANOL 2 MG/1 ML INJ IV PRN (11:00)
[2021-01-08] MEDS ORDERED: METHYLERGONOVINE MALEATE 0.2 MG/ML VIAL IM PRN (11:00)
[2021-01-08] MEDS ORDERED: miSOPROStol 200 MCG TAB PR PRN (11:00)
[2021-01-08] MEDS ORDERED: LOPERAMIDE 2 MG CAP PO PRN (11:00)
[2021-01-08] MEDS ORDERED: CARBOPROST TROMETHAMINE 250 MCG/1 ML INJ IM PRN (11:00)
[2021-01-08] MEDS ORDERED: NALOXONE 0.4 MG/1 ML INJ IV PRN (11:00)
[2021-01-08] MEDS ORDERED: MINERAL OIL 30 ML ORAL LIQD PO PRN (11:00)
[2021-01-08] MEDS ORDERED: ePHEDrine SULFATE 50 MG/1 ML INJ IV PRN (11:00)
[2021-01-08] MEDS ORDERED: ACETAMINOPHEN 325 MG TAB PO PRN ×2 (11:00→22:03)
[2021-01-08] MEDS ORDERED: LIDOCAINE (2%) 20 MG/1 ML VIAL 20 ML MDV INFILTRATI SCH (11:00)
[2021-01-08] MEDS ORDERED: TERBUTALINE 1 MG/1 ML INJ SUB-Q PRN (11:00)
[2021-01-08] MEDS ORDERED: ONDANSETRON 4 MG/2 ML INJ IV PRN ×2 (11:00→22:03)
[2021-01-08] MEDS ORDERED: OXYTOCIN 10 UNIT/1 ML INJ IM PRN (11:00)
[2021-01-08 12:34] LABS: Hematocrit 39.1 % (30.3-42.9); Hemoglobin 13.5 gm/dl (10.1-14.3); Mean Corpuscular HGB Conc 35 % (30-34); Mean Corpuscular Volume 91 fl (79-97); Red Blood Count 4.32 M/mm3 (3.65-5.03); Red Cell Distribution Width 16.6 % (13.2-15.2)
[2021-01-08 12:35] LABS: Platelet Count 58 K/mm3 (140-440)
[2021-01-08] MEDS ORDERED: SODIUM CHLORIDE 0.9% 500 ML 500 ML IV ONE (18:36)
--- NOTE | 2021-01-08 19:52 | Progress Note ---
Subjective - Subjective Date of service: 01/08/21 Interval history: Late entry: PM rounds AROM at 19:00 scant, clear cervix 5cm/8p%/-1 FHT Category 1 [place]: irregular Plan for oxytocin per protocol Deidra Cyr MD Objective - Vital Signs Vital Signs: Vital Signs - 12hr 01/08/21 01/08/21 01/08/21 08:55 08:56 09:00 Temperature Pulse Rate 95 H 107 H 89 Respiratory Rate Blood Pressure 111/71 O2 Sat by Pulse 100 100 Oximetry O2 Sat by Pulse Oximetry [ Bilateral] 01/08/21 01/08/21 01/08/21 09:05 09:10 09:15 Temperature Pulse Rate 90 98 H 104 H Respiratory Rate Blood Pressure O2 Sat by Pulse 99 100 100 Oximetry O2 Sat by Pulse Oximetry [ Bilateral] 01/08/21 01/08/21 01/08/21 09:20 09:25 09:30 Temperature Pulse Rate 98 H 100 H 91 H Respiratory Rate Blood Pressure O2 Sat by Pulse 99 100 99 Oximetry O2 Sat by Pulse Oximetry [ Bilateral] 01/08/21 01/08/21 01/08/21 09:35 09:40 09:45 Temperature Pulse Rate 92 H 107 H 96 H Respiratory Rate Blood Pressure O2 Sat by Pulse 99 99 100 Oximetry O2 Sat by Pulse Oximetry [ Bilateral] 01/08/21 01/08/21 01/08/21 09:50 09:55 10:00 Temperature Pulse Rate 100 H 99 H 90 Respiratory Rate Blood Pressure O2 Sat by Pulse 98 98 96 Oximetry O2 Sat by Pulse Oximetry [ Bilateral] 01/08/21 01/08/21 01/08/21 10:05 10:10 10:15 Temperature Pulse Rate 107 H 98 H 84 Respiratory Rate Blood Pressure O2 Sat by Pulse 97 97 98 Oximetry O2 Sat by Pulse Oximetry [ Bilateral] 01/08/21 01/08/21 01/08/21 10:20 10:25 10:30 Temperature Pulse Rate 96 H 94 H 86 Respiratory Rate Blood Pressure O2 Sat by Pulse 97 98 98 Oximetry O2 Sat by Pulse Oximetry [ Bilateral] 01/08/21 01/08/21 01/08/21 10:35 10:40 10:59 Temperature Pulse Rate 96 H 80 84 Respiratory Rate Blood Pressure O2 Sat by Pulse 99 98 99 Oximetry O2 Sat by Pulse Oximetry [ Bilateral] 01/08/21 01/08/21 01/08/21 11:00 11:04 11:07 Temperature Pulse Rate 83 82 93 H Respiratory Rate Blood Pressure 108/64 O2 Sat by Pulse 98 93 Oximetry O2 Sat by Pulse Oximetry [ Bilateral] 01/08/21 01/08/21 01/08/21 11:09 11:14 11:19 Temperature Pulse Rate 103 H 89 76 Respiratory Rate Blood Pressure O2 Sat by Pulse 97 99 97 Oximetry O2 Sat by Pulse Oximetry [ Bilateral] 01/08/21 01/08/21 01/08/21 11:24 11:29 11:34 Temperature Pulse Rate 95 H 85 84 Respiratory Rate Blood Pressure O2 Sat by Pulse 99 97 97 Oximetry O2 Sat by Pulse Oximetry [ Bilateral] 01/08/21 01/08/21 01/08/21 11:39 11:44 11:49 Temperature Pulse Rate 89 90 86 Respiratory Rate Blood Pressure O2 Sat by Pulse 98 97 97 Oximetry O2 Sat by Pulse Oximetry [ Bilateral] 01/08/21 01/08/21 01/08/21 11:54 11:57 11:59 Temperature Pulse Rate 98 H 89 94 H Respiratory Rate Blood Pressure O2 Sat by Pulse 97 92 97 Oximetry O2 Sat by Pulse Oximetry [ Bilateral] 01/08/21 01/08/21 01/08/21 12:04 12:07 12:09 Temperature Pulse Rate 83 96 H Respiratory Rate Blood Pressure O2 Sat by Pulse 97 96 Oximetry O2 Sat by Pulse 98 Oximetry [ Bilateral] 01/08/21 01/08/21 01/08/21 12:14 12:19 12:24 Temperature Pulse Rate 89 104 H 75 Respiratory Rate Blood Pressure O2 Sat by Pulse 98 97 97 Oximetry O2 Sat by Pulse Oximetry [ Bilateral] 01/08/21 01/08/21 01/08/21 12:29 12:34 12:39 Temperature Pulse Rate 76 89 84 Respiratory Rate Blood Pressure O2 Sat by Pulse 97 98 96 Oximetry O2 Sat by Pulse Oximetry [ Bilateral] 01/08/21 01/08/21 01/08/21 12:44 12:49 12:58 Temperature Pulse Rate 87 86 83 Respiratory Rate Blood Pressure O2 Sat by Pulse 98 98 99 Oximetry O2 Sat by Pulse Oximetry [ Bilateral] 01/08/21 01/08/21 01/08/21 13:03 13:08 13:13 Temperature Pulse Rate 87 92 H 87 Respiratory Rate Blood Pressure O2 Sat by Pulse 96 97 96 Oximetry O2 Sat by Pulse Oximetry [ Bilateral] 01/08/21 01/08/21 01/08/21 13:18 13:23 13:28 Temperature Pulse Rate 82 91 H 78 Respiratory Rate Blood Pressure O2 Sat by Pulse 96 96 97 Oximetry O2 Sat by Pulse Oximetry [ Bilateral] 01/08/21 01/08/21 01/08/21 13:33 13:37 13:38 Temperature Pulse Rate 87 91 H 92 H Respiratory Rate Blood Pressure O2 Sat by Pulse 98 94 99 Oximetry O2 Sat by Pulse Oximetry [ Bilateral] 01/08/21 01/08/21 01/08/21 13:43 13:48 13:53 Temperature Pulse Rate 82 98 H 96 H Respiratory Rate Blood Pressure O2 Sat by Pulse 98 99 97 Oximetry O2 Sat by Pulse Oximetry [ Bilateral] 01/08/21 01/08/21 01/08/21 13:58 14:03 14:08 Temperature Pulse Rate 87 93 H 83 Respiratory Rate Blood Pressure O2 Sat by Pulse 98 98 98 Oximetry O2 Sat by Pulse Oximetry [ Bilateral] 01/08/21 01/08/21 01/08/21 14:13 14:18 14:23 Temperature Pulse Rate 80 79 93 H Respiratory Rate Blood Pressure O2 Sat by Pulse 98 97 97 Oximetry O2 Sat by Pulse Oximetry [ Bilateral] 01/08/21 01/08/21 01/08/21 14:28 14:30 14:33 Temperature 98.1 F Pulse Rate 94 H 85 Respiratory 16 Rate Blood Pressure O2 Sat by Pulse 96 98 Oximetry O2 Sat by Pulse Oximetry [ Bilateral] 01/08/21 01/08/21 01/08/21 14:38 14:43 14:48 Temperature Pulse Rate 87 93 H 97 H Respiratory Rate Blood Pressure 102/61 O2 Sat by Pulse 98 97 96 Oximetry O2 Sat by Pulse Oximetry [ Bilateral] 01/08/21 01/08/21 01/08/21 14:53 14:58 15:03 Temperature Pulse Rate 82 97 H 95 H Respiratory Rate Blood Pressure O2 Sat by Pulse 97 97 97 Oximetry O2 Sat by Pulse Oximetry [ Bilateral] 01/08/21 01/08/21 01/08/21 15:08 15:13 15:18 Temperature Pulse Rate 90 85 87 Respiratory Rate Blood Pressure O2 Sat by Pulse 98 98 97 Oximetry O2 Sat by Pulse Oximetry [ Bilateral] 01/08/21 01/08/21 01/08/21 15:23 15:28 15:29 Temperature Pulse Rate 94 H 87 58 L Respiratory Rate Blood Pressure O2 Sat by Pulse 99 95 93 Oximetry O2 Sat by Pulse Oximetry [ Bilateral] 01/08/21 01/08/21 01/08/21 15:33 15:37 15:39 Temperature Pulse Rate 100 H 73 Respiratory Rate Blood Pressure O2 Sat by Pulse 100 79 L 84 Oximetry O2 Sat by Pulse Oximetry [ Bilateral] 01/08/21 01/08/21 01/08/21 15:44 15:49 15:50 Temperature Pulse Rate 76 100 H 108 H Respiratory Rate Blood Pressure O2 Sat by Pulse 81 L 88 90 Oximetry O2 Sat by Pulse Oximetry [ Bilateral] 01/08/21 01/08/21 01/08/21 15:54 15:59 16:04 Temperature Pulse Rate Respiratory Rate Blood Pressure O2 Sat by Pulse 83 L 92 80 L Oximetry O2 Sat by Pulse Oximetry [ Bilateral] 01/08/21 01/08/21 01/08/21 16:08 16:09 16:13 Temperature Pulse Rate 101 H 124 H Respiratory Rate Blood Pressure O2 Sat by Pulse 79 L 85 78 L Oximetry O2 Sat by Pulse Oximetry [ Bilateral] 01/08/21 01/08/21 01/08/21 16:14 16:18 16:23 Temperature Pulse Rate 92 H 94 H Respiratory Rate Blood Pressure O2 Sat by Pulse 85 99 99 Oximetry O2 Sat by Pulse Oximetry [ Bilateral] 01/08/21 01/08/21 01/08/21 16:28 16:33 16:38 Temperature Pulse Rate 90 91 H 86 Respiratory Rate Blood Pressure O2 Sat by Pulse 99 99 97 Oximetry O2 Sat by Pulse Oximetry [ Bilateral] 01/08/21 01/08/21 01/08/21 16:43 16:48 16:53 Temperature Pulse Rate 81 83 82 Respiratory Rate Blood Pressure O2 Sat by Pulse 97 98 98 Oximetry O2 Sat by Pulse Oximetry [ Bilateral] 01/08/21 01/08/21 01/08/21 16:58 17:03 17:05 Temperature Pulse Rate 87 102 H 91 H Respiratory Rate Blood Pressure O2 Sat by Pulse 97 97 89 Oximetry O2 Sat by Pulse Oximetry [ Bilateral] 10/09/2301/08/21 01/08/21 17:08 17:13 17:18 Temperature Pulse Rate 96 H 85 87 Respiratory Rate Blood Pressure O2 Sat by Pulse 97 99 97 Oximetry O2 Sat by Pulse Oximetry [ Bilateral] 01/08/21 01/08/21 01/08/21 17:23 17:28 17:33 Temperature Pulse Rate 83 93 H 92 H Respiratory Rate Blood Pressure O2 Sat by Pulse 98 98 99 Oximetry O2 Sat by Pulse Oximetry [ Bilateral] 01/08/21 01/08/21 01/08/21 17:38 17:43 17:45 Temperature 98 F Pulse Rate 89 88 101 H Respiratory Rate Blood Pressure O2 Sat by Pulse 99 98 Oximetry O2 Sat by Pulse Oximetry [ Bilateral] 01/08/21 01/08/21 01/08/21 17:48 17:53 17:58 Temperature Pulse Rate 80 83 75 Respiratory Rate Blood Pressure O2 Sat by Pulse 98 98 98 Oximetry O2 Sat by Pulse Oximetry [ Bilateral] 01/08/21 01/08/21 01/08/21 18:03 18:08 18:13 Temperature Pulse Rate 80 85 77 Respiratory Rate Blood Pressure O2 Sat by Pulse 97 98 97 Oximetry O2 Sat by Pulse Oximetry [ Bilateral] 01/08/21 01/08/21 01/08/21 18:14 18:18 18:23 Temperature Pulse Rate 78 84 79 Respiratory Rate Blood Pressure 103/62 O2 Sat by Pulse 97 97 Oximetry O2 Sat by Pulse Oximetry [ Bilateral] 01/08/21 01/08/21 01/08/21 18:28 18:33 18:38 Temperature Pulse Rate 80 72 95 H Respiratory Rate Blood Pressure O2 Sat by Pulse 97 96 99 Oximetry O2 Sat by Pulse Oximetry [ Bilateral] 01/08/21 01/08/21 01/08/21 18:43 18:45 18:48 Temperature Pulse Rate 105 H 73 80 Respiratory Rate Blood Pressure 111/71 O2 Sat by Pulse 97 98 Oximetry O2 Sat by Pulse Oximetry [ Bilateral] 01/08/21 01/08/21 01/08/21 18:53 18:58 19:03 Temperature Pulse Rate 75 81 73 Respiratory Rate Blood Pressure O2 Sat by Pulse 99 97 97 Oximetry O2 Sat by Pulse Oximetry [ Bilateral] 01/08/21 01/08/21 01/08/21 19:08 19:13 19:14 Temperature Pulse Rate 91 H 82 78 Respiratory Rate Blood Pressure 118/65 O2 Sat by Pulse 100 98 Oximetry O2 Sat by Pulse Oximetry [ Bilateral] 01/08/21 01/08/21 01/08/21 19:18 19:23 19:28 Temperature Pulse Rate 86 81 76 Respiratory Rate Blood Pressure O2 Sat by Pulse 100 98 97 Oximetry O2 Sat by Pulse Oximetry [ Bilateral] 01/08/21 01/08/21 01/08/21 19:33 19:38 19:43 Temperature Pulse Rate 94 H 78 79 Respiratory Rate Blood Pressure O2 Sat by Pulse 99 97 96 Oximetry O2 Sat by Pulse Oximetry [ Bilateral] - Labs Labs: Abnormal Labs 01/08/21 11:30 MCHC 35 H RDW 16.6 H Plt Count 58 L Laboratory Results - last 24 hr 01/08/21 01/08/21 11:30 11:30 WBC 6.3 RBC 4.32 Hgb 13.5 Hct 39.1 MCV 91 MCH 31 MCHC 35 H RDW 16.6 H Plt Count 58 L Blood Type O POSITIVE Antibody Screen Negative
[2021-01-08] MEDS ORDERED: PROMETHAZINE 25 MG RECT SUPP PR PRN (22:03)
[2021-01-08] MEDS ORDERED: PROMETHAZINE 25 MG TAB PO PRN (22:03)
[2021-01-08] MEDS ORDERED: WITCH HAZEL/ GLYCERIN PAD TP PRN (22:03)
[2021-01-08] MEDS ORDERED: HYDROcodone/ACETAMINOPHEN 5-325 MG TAB PO PRN (22:03)
[2021-01-08] MEDS ORDERED: MAGNESIUM HYDROXIDE (MOM) ORAL LIQD UDC PO PRN (22:03)
[2021-01-08] MEDS ORDERED: KETOROLAC 30 MG/1 ML INJ IV PRN (22:03)
[2021-01-08] MEDS ORDERED: LANOLIN/ZINC/DIMETHICONE (LANSINOH) 7 GM TP PRN (22:03)
[2021-01-08] MEDS ORDERED: diphenhydrAMINE 25 MG CAP PO PRN (22:03)
--- NOTE | 2021-01-08 22:03 | Procedure Note ---
OB Delivery Note - Delivery Date of Delivery: 01/08/21 Surgeon: LUIS A POTTS Estimated blood loss: 200cc - Vaginal Delivery position: OA Intrapartum events: none Delivery induction: none Delivery monitor: external FHT, external uterine Route of delivery: Delivery placenta: spontaneous Delivery cord: 3 umbilical vessels Episiotomy: none Delivery laceration: none Delivery comments: Patient pushed to deliver a viable male over an intact perineum with weight and . Position AROLDO, no nuchal cord. Spontaneous cry at delivery. Delivery of the anterior shoulder atraumatic, remainder of delivery uncomplicated. Cord clamped cut and baby handed to waiting [facility] team. Spontaneous delivery of an intact placenta with three-vessel cord. Inspection of the perineum cervix and vagina revealed no lacerations. Firm fundus, [id number]. All sponge needle and instrument counts correct x2. Mom and baby stable to . Deidra Potts MD
[2021-01-08] MEDS ORDERED: IBUPROFEN 600 MG TAB PO SCH (23:00)
[2021-01-09 13:34] LABS: Hematocrit 37.9 % (30.3-42.9); Hemoglobin 12.9 gm/dl (10.1-14.3)
--- NOTE | 2021-01-09 14:48 | Progress Note ---
Assessment and Plan A: S/P Thrombocytopenia p: Continue routine pp orders PLT ct today Consulted Dr Rosario D/c home tomm if stable and agreed by Subjective - Subjective Date of service: 01/09/21 Principal diagnosis: s/p Patient reports: appetite normal, voiding normally, pain well controlled, ambulating normally : doing well Objective - Vital Signs Latest vital signs: Vital Signs Temp Pulse Resp BP Pulse Ox Pulse Ox 01/09/21 12:02 98.4 F 84 20 96/63 99 01/09/21 11:07 100 01/09/21 08:40 100 01/09/21 07:45 98.1 F 76 20 103/57 100 01/09/21 03:24 98.2 F 87 18 94/56 99 01/09/21 02:26 18 01/09/21 01:26 18 01/09/21 00:00 100 01/08/21 23:28 98.0 F 66 18 109/64 99 01/08/21 23:10 65 102/61 01/08/21 23:02 72 95/55 01/08/21 22:58 83 98 01/08/21 22:53 76 99 01/08/21 22:48 80 99 01/08/21 22:47 76 96/53 01/08/21 22:43 76 99 01/08/21 22:38 77 98 01/08/21 22:33 73 100 01/08/21 22:32 74 92/50 01/08/21 22:28 82 98 01/08/21 22:23 75 99 01/08/21 22:21 78 94 01/08/21 22:18 80 97 01/08/21 22:17 80 95/51 01/08/21 22:13 88 98 01/08/21 22:09 74 100/56 01/08/21 22:08 84 98 01/08/21 22:07 77 93/51 01/08/21 22:03 76 98 01/08/21 22:01 58 L 88 01/08/21 21:58 73 97 01/08/21 21:53 75 98 01/08/21 21:48 71 98 01/08/21 21:45 73 115/76 01/08/21 21:43 76 96 01/08/21 21:40 119 H 86 01/08/21 21:38 74 96 10/06/21 21:33 72 97 01/08/21 21:28 80 98 01/08/21 21:26 87 94 01/08/21 21:23 78 98 01/08/21 21:18 72 99 01/08/21 21:16 65 117/56 88 01/08/21 21:13 70 99 01/08/21 21:08 74 98 01/08/21 21:06 79 91 01/08/21 21:03 86 98 01/08/21 20:58 77 99 01/08/21 20:53 78 96 01/08/21 20:48 72 95 01/08/21 20:44 114 H 121/65 01/08/21 20:43 84 97 01/08/21 20:38 80 98 01/08/21 20:34 79 94 01/08/21 20:33 81 96 01/08/21 20:28 87 98 01/08/21 20:25 69 69 L 01/08/21 20:23 75 97 01/08/21 20:20 75 89 01/08/21 20:18 83 95 01/08/21 20:14 88 107/64 01/08/21 20:13 78 95 01/08/21 20:11 82 94 01/08/21 20:08 89 97 01/08/21 20:03 85 95 01/08/21 20:00 85 94 01/08/21 19:58 82 95 01/08/21 19:53 88 95 01/08/21 19:48 77 97 01/08/21 19:45 75 111/55 01/08/21 19:43 79 96 01/08/21 19:38 78 97 01/08/21 19:33 94 H 99 01/08/21 19:28 76 97 01/08/21 19:23 81 98 01/08/21 19:18 86 100 01/08/21 19:14 78 118/65 01/08/21 19:13 82 98 01/08/21 19:08 91 H 100 01/08/21 19:03 73 97 01/08/21 18:58 81 97 01/08/21 18:53 75 99 01/08/21 18:48 80 98 01/08/21 18:45 73 111/71 01/08/21 18:43 105 H 97 01/08/21 18:38 95 H 99 01/08/21 18:33 72 96 01/08/21 18:28 80 97 01/08/21 18:23 79 97 01/08/21 18:18 84 97 01/08/21 18:14 78 103/62 01/08/21 18:13 77 97 01/08/21 18:08 85 98 01/08/21 18:03 80 97 01/08/21 17:58 75 98 01/08/21 17:53 83 98 01/08/21 17:48 80 98 01/08/21 17:45 98 F 101 H 01/08/21 17:43 88 98 01/08/21 17:38 89 99 01/08/21 17:33 92 H 99 01/08/21 17:28 93 H 98 01/08/21 17:23 83 98 01/08/21 17:18 87 97 01/08/21 17:13 85 99 01/08/21 17:08 96 H 97 01/08/21 17:05 91 H 89 01/08/21 17:03 102 H 97 01/08/21 16:58 87 97 01/08/21 16:53 82 98 01/08/21 16:48 83 98 01/08/21 16:43 81 97 01/08/21 16:38 86 97 01/08/21 16:33 91 H 99 01/08/21 16:28 90 99 01/08/21 16:23 94 H 99 01/08/21 16:18 92 H 99 01/08/21 16:14 85 01/08/21 16:13 124 H 78 L 01/08/21 16:09 85 01/08/21 16:08 101 H 79 L 01/08/21 16:04 80 L 01/08/21 15:59 92 01/08/21 15:54 83 L 01/08/21 15:50 108 H 90 01/08/21 15:49 100 H 88 01/08/21 15:44 76 81 L 01/08/21 15:39 73 84 01/08/21 15:37 79 L 01/08/21 15:33 100 H 100 01/08/21 15:29 58 L 93 01/08/21 15:28 87 95 01/08/21 15:23 94 H 99 01/08/21 15:18 87 97 01/08/21 15:13 85 98 01/08/21 15:08 90 98 01/08/21 15:03 95 H 97 01/08/21 14:58 97 H 97 01/08/21 14:53 82 97 01/08/21 14:48 97 H 102/61 96 Intake and Output 01/08/21 01/09/21 01/09/21 22:59 06:59 14:59 Intake Total 10.534 240 Output Total 1300 Balance 10.534 -1060 Intake: IV 10.534 PITOCin/NS 30 UNIT/500ML 10.534 30 units In 500 ml @ 4 mls/hr IV TITR ANNE-MARIE Rx#: [id number] Oral 240 Output: Urine 1300 Void 1300 Other: Total, Intake Amount 240 Total, Output Amount 800 Estimated Blood Loss 200 - Exam Breasts: Present: normal Abdomen: Present: normal appearance, soft, normal bowel sounds Vulva: both: normal Uterus: Present: normal, firm, fundal height below umbilicus Extremities: Present: normal - Labs Labs: Abnormal lab results 01/08/21 Range/Units 20:49 Plt Count 54 L (140-440) K/mm3
[2021-01-09] MEDS: oxyCODONE /ACETAMINOPHEN 5-325MG TAB PO PRN ×2 (15:24→22:23)
[2021-01-09 23:24] LABS: Basophils # (Auto) 0.1 K/mm3 (0.0-0.1); Basophils % (Auto) 0.5 % (0.0-1.8); Eosinophils # (Auto) 0.1 K/mm3 (0.0-0.4); Eosinophils % (Auto) 1.4 % (0.0-4.3); Hematocrit 36.6 % (30.3-42.9); Hemoglobin 12.6 gm/dl (10.1-14.3); Lymphocytes # (Auto) 2.7 K/mm3 (1.2-5.4); Lymphocytes % (Auto) 28.1 % (13.4-35.0); Mean Corpuscular HGB Conc 34 % (30-34); Mean Corpuscular Volume 91 fl (79-97); Monocytes # (Auto) 0.7 K/mm3 (0.0-0.8); Red Blood Count 4.01 M/mm3 (3.65-5.03)
[2021-01-09 23:25] LABS: Platelet Count 58 K/mm3 (140-440)
--- NOTE | 2021-01-10 08:24 | Discharge Summary ---
Providers - Providers Date of Admission: 01/08/21 22:04 Date of discharge: 01/10/21 Attending physician: LUIS A POTTS MD Primary care physician: LUIS A POTTS MD Hospitalization Reason for admission: active labor (f/u in 1 wk r/t thrombocytopenia), other (decrease Fm) Delivery: Episiotomy: none Laceration: none Other procedures: other (multiple plt levels drawn r/t thrombocytopenia) complications: other (thrombocytopenia) Discharge diagnosis: IUP at term delivered [place] baby: male Hospital course: Pt was admitted to [facility] in active labor with thrombocytopenia. She had a w/o pp complications. See h&p, delivery summary, and pp notes. Condition at discharge: Stable Disposition: 01 HOME / SELF CARE / HOMELESS Plan - Discharge Medications Prescriptions: Ibuprofen [Motrin 600 MG tab] 600 mg PO Q6HR PRN #30 tablet PRN Reason: Menstrual Cramps - Provider Discharge Summary Activity: routine, no sex for 6 weeks, no heavy lifting 4 weeks, no strenuous exercise Diet: routine Instructions: routine Additional instructions: [] Smoking cessation referral if applicable(refer to patient education folder for contact #) [] Refer to [facility]'s [facility] Booklet Call your doctor immediately for: * Fever > 100.5 * Heavy vaginal bleeding ( >1 pad per hour) * Severe persistent headache * Shortness of breath * Reddened, hot, painful area to leg or breast * Drainage or odor from incision. * Keep incision clean and dry at all times and follow doctor's instructions regarding bathing/showering - Follow up plan Follow up: LUSI A POTTS MD [Primary Care Provider] - 6 Weeks
[2021-01-10 12:46] VITALS: BP 102/59
== END 2021-01-10 13:00 | disposition home or self-care (01) | DRG 774 ==
LOC: TRG 08:10 → APU 08:12 → LD 10:55 → TRG 22:04 → LD 22:04 → OB 23:52
PROVIDERS: ADMIT Obstetrics & Gynecology; ATTEND Obstetrics & Gynecology
PROC: 10E0XZZ Delivery of Products of Conception, External Approach (ICD-10-PCS; principal; 2021-01-08)
PROC: 10907ZC Drainage of Amniotic Fluid, Therapeutic from Products of Conception, Via Natural or Artificial Opening (ICD-10-PCS; 2021-01-08)
DX: O98.32 Other infections with a predominantly sexual mode of transmission complicating childbirth (principal); Z3A.40 40 weeks gestation of pregnancy; Z37.0 Single live birth; Z20.822 Contact with and (suspected) exposure to COVID-19; A60.00 Herpesviral infection of urogenital system, unspecified; Z82.49 Family history of ischemic heart disease and other diseases of the circulatory system; O99.12 Other diseases of the blood and blood-forming organs and certain disorders involving the immune mechanism complicating childbirth; D69.6 Thrombocytopenia, unspecified
CPT/HCPCS: 36415; 85014; 85018; 85025; 85027; 85049; 86850; 86900; 86901; 96360; 96365; G0378; J0595; J2590; J7120; U0003